=== PATIENT | male | born 1975 | race Caucasian/White ===

== ENCOUNTER 2017-02-15 14:50 | Emergency (ER) | payer OTHER ==
[~2017-02-15] VITALS: Ht 185.4 cm; Wt 81.7 kg
--- NOTE | ~2017-02-15 | EKG ---
[address] [address] ELECTROCARDIOGRAM REPORT Name: SAJAN PLATA Room #: PRE M.RPilar#: [id number] Admission: Attend Phys: Discharge: Date of : 77 Report #: [id number] THIS REPORT FOR: //name// [facility] ED Test Date: 2017-02-15 Test Time: 14:55:06 Pat Name: SAJAN PLATA Department: Room: Gender: Labor Delivery Rn: : [id number] Requested By: Avi Orellana Order Number: [id number] MD: Lonnie Rodriguez Measurements Intervals [place] Rate: 68 P: 74 MO: 151 QRS: 82 QRSD: 105 T: 36 QT: 403 QTc: 429 Interpretive Statements Sinus rhythm Left atrial enlargement No previous ECG available for comparison Electronically Signed On 02-15-2017 15:35:11 POST [employer] by Lonnie Rodriguez [email or web address] <ELECTRONICALLY SIGNED> By: Lonnie Rodriguez MD 02/15/17 1535 1455 1455 Lonnie Rodriguez MD /EPI
[~2017-02-15 14:50] MED LIST: KEFLEX500 MG PO; VENTOLIN HFA INH8 GM INH
[2017-02-15 15:33] LABS: HEMATOCRIT 42.2 % (42.0-52.0); HEMOGLOBIN 14.7 gm/dL (14.0-18.0); MCH 32.1 pg (26.0-34.0); MCHC 34.9 g/dL (28.0-37.0); MCV 92.1 fL (80.0-100.0); RBC 4.58 mil/uL (4.50-6.00); RDW 12.8 % (10.5-14.5)
[2017-02-15 15:42] LABS: ANION GAP 6 mmol/L (7-16); BUN 15 mg/dL (7-18); CALCIUM 9.1 mg/dL (8.5-10.1); CHLORIDE 103 mmol/L (98-107); CO2 32 mmol/L (21-32); CREATININE 0.8 mg/dL (0.7-1.3); GLUCOSE 96 mg/dL (74-106); POTASSIUM 3.5 mmol/L (3.5-5.1); SODIUM 141 mmol/L (136-145)
[2017-02-15 15:51] LABS: TROPONIN-I < 0.04 ng/mL (<0.06)
== END 2017-02-15 17:55 | disposition home or self-care (01) ==
LOC: ER 14:50
PROVIDERS: Emergency Medicine
DX: R07.9 Chest pain, unspecified (principal)